=== PATIENT | female | born 1970 | race Caucasian/White ===

== ENCOUNTER 2022-06-18 08:29 | Emergency (ER) | payer OTHER ==
[~2022-06-18] VITALS: Ht 154.9 cm; Wt 66.0 kg
[2022-06-18] MEDS ORDERED: MORPHINE SULFATE 4 MG/ML CPJ (NOT FOR IM USE) IV STA (08:35)
[2022-06-18 09:55] LABS: BASOPHILS % 0.4 % (0.0-2.0); EOSINOPHILS % 0.6 % (0.0-5.0); HEMATOCRIT. 38.8 % (36.0-48.0); HEMOGLOBIN. 13.6 g/dL (12.0-16.0); LYMPHOCYTES % 16.5 % (20.0-50.0); MEAN CORPUSCULAR VOLUME 88.1 fL (81.0-99.0); MEAN PLATELET VOLUME 10.9 fl (7.4-10.4); MONOCYTES % 7.1 % (2.0-8.0); NEUTROPHILS % 75.4 % (40.0-76.0); PLATELET 137 x1000/uL (130-400); RED CELL DISTRIBUTION WIDTH 13.7 % (11.6-14.6)
[2022-06-18 10:20] LABS: CHLORIDE 109 mEq/L (98-107)
[2022-06-18 13:37] VITALS: BP 135/74
== END 2022-06-18 13:38 | disposition home or self-care (01) ==
LOC: ER 08:29
DX: R07.89 Other chest pain (principal); R77.8 Other specified abnormalities of plasma proteins; E11.9 Type 2 diabetes mellitus without complications; I10 Essential (primary) hypertension
CPT/HCPCS: 36415; 71045; 80053; 83880; 84484; 85025; 93005; 96374; 99285; J2270; Z7610